=== PATIENT | female | born 2000 | race Two or more races ===

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

== ENCOUNTER 2024-08-18 16:32 | Observation (INO) | payer MEDICAID ==
[~2024-08-18] VITALS: Ht 162.6 cm; Wt 65.8 kg
--- NOTE | 2024-08-18 22:06 | DVHDS2 ---
Physician Discharge Progress N Final Diagnosis: well being established Operations or Procedures: Operations or Procedures S: 24yo IUP@27.2wks presents to OB triage with C/O uterine cramping in the morning, denies any currently. Denies UCs/LOF/VB/EDUARDO/vision changes/RUQ pain. Endorses +FM. PNC: initially with Dr. Romo but now with Dr. Katz at [facility]. O: VSS PO hydration NST reactive TOCO: no UCs noted A: 24yo IUP@27.2wks wellbeing established P: D/C home Drink 2-3L of water a day kick counts and Preeclampsia warning signs reviewed. PTL precautions given and when to return to the hospital. Dr. Katz consulted, agrees with POC. Condition on Discharge: Stable Disposition: Home Discharge Instructions: Diet: Regular Activity: No Restrictions, As Tolerated Medications: see med list Follow Up Care: Specialist: f/i with Dr. Katz at [facility] as scheduled for care Discharge Statement: "Patient was advised to return to the ER or call 911 if any headaches, dizziness, shortness of breath, chest pain, abdominal pain, bleeding, fevers, or worsening of medical condition. Patient was counseled about treatment plan, medications, possible side effects, patientverbalized understanding. All questions were answered to the best of my ability. This discharge took greater then 30 minutes in planning, reviewing docu mentation, counseling the patient, and discussing with other team members." Visit Coding OBGYN Date of Service: Aug 18, 2024 Billing Provider: CHEYENNE CREWS CNM STEAM TRAP WORKER Common Visit Codes: [id number] OBS CARE (LOW) CHEYENNE CREWS CNM Aug 18, 2024 22:06
== END 2024-08-18 18:23 | disposition home or self-care (01) ==
LOC: LDRP 16:32
PROVIDERS: ADMIT Obstetrics & Gynecology; ATTEND Obstetrics & Gynecology
DX: O62.9 Abnormality of forces of labor, unspecified (principal); Z3A.27 27 weeks gestation of pregnancy; Z79.899 Other long term (current) drug therapy
CPT/HCPCS: 59025; 81002; 94760; G0378

== ENCOUNTER 2024-11-09 02:36 | Inpatient (IN) | payer MEDICAID ==
[~2024-11-09] VITALS: Ht 162.6 cm; Wt 74.8 kg
[2024-11-09] MEDS ORDERED: NALBUPHINE HCL 10 MG/1ml INJECTION IV PRN (03:45)
[2024-11-09 04:11] LABS: Urine Bacteria None Seen /hpf (None Seen)
[2024-11-09] MEDS ORDERED: LACT. RINGERS/OXYTOCIN 20UNITS 1,000 ML IV SCH (04:15)
[2024-11-09 04:20] LABS: Basophils # (auto) 0.1 10 ^3/uL (0-0.2); Basophils % (auto) 1.3 % (0.0-2.0); Eosinophils # (auto) 0.1 10 ^3/uL (0-0.8); Hematocrit 38.5 % (36.0-46.0); Lymphocytes # (auto) 2.5 10 ^3/uL (0.4-5.4); Lymphocytes % (auto) 29.8 % (10.0-50.0); Mean Corpuscular Hemoglobin 30.4 pg (28.0-32.0); Mean Corpuscular Hgb Conc. 33.8 g/dL (32.0-36.0); Mean Corpuscular Volume 89.8 fL (80.0-100.0); Monocytes # (auto) 0.6 10 ^3/uL (0-1.3); Monocytes % (auto) 7.1 % (0.0-12.0); Neutrophils # (auto) 5.2 10 ^3/uL (1.6-8.6); Neutrophils % (auto) 60.8 % (37.0-80.0); Nucleated Red Blood Cells % 0.1 %; Platelet Count (auto) 190 10^3/uL (140-450); Red Blood Cells 4.28 10^6/uL (4.0-5.20); Red Cell Distribution Width 13.8 % (11.8-14.3); White Blood Cell 8.6 10^3/uL (4.4-10.8)
[2024-11-09 04:40] LABS: INR 0.91 (0.9-1.15); Partial Thromboplastin Time 29.7 SEC (24.5-34.5); Prothrombin Time 9.7 sec (9.3-11.8)
[2024-11-09 04:41] LABS: Urine Blood TRACE /uL (Negative); Urine Clarity Clear (Clear); Urine Color Light-Yellow (Yellow); Urine Mucus FEW (None Seen); Urine Protein, UAD Negative (Negative); Urine Specific Gravity 1.014 (1.001-1.035); Urine Squamous Epithelial Cell FEW /hpf (<5); Urine Urobilinogen Normal (Negative); Urine WBC 4 /HPF (0-5); Urine pH 6.5 (5.0-9.0)
[2024-11-09 04:57] LABS: Amphetamine Screen, Urine Neg (NEGATIVE); Barbiturate Scree,Urine Neg (NEGATIVE); Benzodiazephine Screen, Urine Neg (NEGATIVE); Cocaine Screen, Urine Neg (NEGATIVE); Opiate Scree,Urine Neg (NEGATIVE); Phencyclidine Screen, Urine Neg (NEGATIVE)
[2024-11-09 04:59] LABS: Alanine Aminotransferase 11 U/L (7-40); Albumin 4.1 g/dL (3.2-4.8); Anion Gap 10 (5-15); Aspartate Aminotransferase 20 U/L (13-40); BUN/Creatinine Ratio 14.5 (10.0-20.0); Calcium 9.7 mg/dL (8.7-10.4); Chloride 105 mmol/L (98-107); Glucose 86 mg/dL (74-106)
[2024-11-09 05:00] LABS: Bilirubin, Total 0.6 mg/dL (0.2-1.0)
[2024-11-09 05:10] LABS: Alkaline Phosphatase 193 U/L (46-116); Blood Urea Nitrogen 9 mg/dL (9-23); Carbon Dioxide 20 mmol/L (20-31); Sodium 135 mmol/L (136-145)
[2024-11-09] MEDS: LACTATED RINGER'S 1,000 ML IV SCH (05:34)
[2024-11-09 05:35] LABS: Cannabinoid Screen, Urine Neg (NEGATIVE)
[2024-11-09] MEDS: PHISODERM TOP SOLN 240ML BTL TOP PRN (05:35)
[2024-11-09] MEDS: WITCH HAZEL-GLYCERIN PAD TOP PRN (05:35)
[2024-11-09] MEDS: DERMOPLAST 60ML BOTTLE TOP PRN (05:36)
[2024-11-09] MEDS: KETOROLAC TROMETH 30 MG/ML 1ML VIAL IV ONE (08:21)
--- NOTE | 2024-11-09 08:22 | LDN2 ---
Labor and Delivery Note Date 11/09/24 Age 24 3 Para 3 now AB 0 EDC 11/14/24 EGA 39.2wks Diagnosis active labor then Vaginal Delivery: VTX Vacuum Assisted: No Placenta: Spontaneous Sex: Male Weight pending Apgars 9/9 Nuchal Cord Transected: No Amniotic Fluid: Clear Anesthesia local Episiotomy: No Extension: No Repaired with first degree perineal repaired with 3-0 vicryl EBL QBL 300ml Labs Blood Bank 11/09/24 04:02: Blood Type O POSITIVE Complications none Conditions stable Tool Procurement Coordinator Barbie Comments/Significant Med Nathalia SROM clear fluid while pushing At 0800 this 24yo now delivered a viable Male infant by w/ APGARS 9/9. SAVANAH presentation. Infant placed skin to skin on pts chest. Cord clamped and cut after pulsation ceased. Cord blood sent. Intact 3-vessel cord placenta delivered spontaneously, Dhillon. Pitocin IV bolus started. Pt requests to take home placenta, release form signed. Patient had local anesthesia. Cervix/vagina inspected (intact) and first degree perineal laceration present which was repaired with 3-0 vicryl suture. Fundus at U, firm, midline, and light lochia. QBL 300ml. VSS. Count correct x2. Patient to care and baby to couplet care, both stable. Visit Coding OBGYN Date of Service: Nov 10, 2024 Billing Provider: CHEYENNE CREWS CNM FOREIGN LANGUAGE INTERPRETER Common Visit Codes: PROCEDURE ONLY FOREIGN LANGUAGE INTERPRETER Procedure Codes: [id number] DEL INCLUDING CHEYENNE CREWS CNM Nov 09, 2024 08:22
--- NOTE | 2024-11-09 08:25 | DVHHP2 ---
OB CC & HPI Date Date of Admission: Nov 09, 2024 Patient Identification: : 3 Para: 2 EDC: November 14, 2024 EGA: 39.2wks Chief Complaints: Reason for admission: active labor History of Present Complaints 24yo IUP@39.2wks presents in active labor. Pt reports UCs Q3 min that started last night. Denies LOF/VB/EDUARDO/vision changes/RUQ pain. Endorses +FM. PNC: Routine PNC with Dr. Katz at [facility], PNC uncomplicated. GTT wnl, dating based on LMP c/w 7wk sono, GBS negative. OB hx: x2, uncomplicated Past Medical History Cardiac: No pertinent Hx Pulmonary: No pertinent Hx Central Nervous System: No pertinent Hx GI: No pertinent Hx Hemotology/Oncology: No pertinent Hx Hepatobiliary: No pertinent Hx Psychiatric: No pertinent Hx Musculoskeletal: No pertinent Hx Rheumotologic: No pertinent Hx Infectious Disease: No peritnent Hx ENT: No pertinent Hx Renal/: No pertinent Hx Endocrine: No pertinent Hx Dermatology: No pertinent Hx Past Surgical History: No pertinent Hx OB History OB History Care: Good Care Ultrasounds: Normal mid trimester US Obstetrical Complications: None Medical Complications: None Allergies: Coded Allergies: NO KNOWN ALLERGIES (Unverified , 08/11/17) Allergies NKDA Home Meds Active Scripts Docusate Sodium (Colace) 100 Mg Cap, 1 CAP PO BID PRN, #60 CAP 2 Refills Prov:KALAYDJIANAZADUHI CNM 11/10/24 Vit W/ Ferrous Fumara ( One Daily) Daily Tab, 1 TAB PO DAILY, #90 TAB 3 Refills Prov:KALAYDJIAN,AZADUHI CNM 11/10/24 Ibuprofen Micronized (MOTRIN TABLET) 600 Mg Tb, 600 MG PO Q6HP PRN for 20 Days, #80 TAB Prov:KALAYDJIANAZADUHI CNM 11/10/24 Current Medications Current Medications Medications (Trade) Dose Ordered Sig/Iris Route PRN Reason Start Time Stop Time Status Last Admin Lactated Ringer's 1,000 ml @ 125 mls/hr Q8H IV 11/09/24 03:45 11/09/24 05:34 Nalbuphine HCl (Nubain) 10 mg Q4HP PRN IV MODERATE PAIN (4-6 PAIN SCALE) 11/09/24 03:45 Witch Sommer (Tucks) 1 pad PRN PRN TOP PERINEAL AREA DISCOMFORT 11/09/24 03:45 11/09/24 05:35 Sodium Lauryl Sulfate (Phisoderm) 240 ml PRN PRN TOP PERINEAL AREA DISCOMFORT 11/09/24 03:45 11/09/24 05:35 Benzocaine (Dermoplast) 1 applic PRN PRN TOP PERINEAL AREA DISCOMFORT 11/09/24 03:45 11/09/24 05:36 Lidocaine HCl (Xylocaine) 40 ml ONCE PRN IJ PERINEAL AREA DISCOMFORT 11/09/24 03:45 Oxytocin 1,000 ml @ 125 mls/hr Q8H IV 11/09/24 04:15 Family & Social History Family/Social History Past Family/Social History: denies Blood Type: O+ Rubella: immune RPR/VDRL: Negative GBS Status: Negative HBsAG: Negative Review of Systems Constitutional: No symptom reported Ears, Nose, & Throat: No symptom reported Eyes: No symptom reported Pulmonary/Respiratory: No symptom reported Cardiovascular: No symptom reported Gastrointestinal: No symptom reported Genitourinary: No symptom reported Musculoskeletal: No symptom reported Skin: No symptom reported Psychiatric: No symptom reported Endocrine: No symptom reported Hemotologic/Lymphatic: No symptom reported OB Admission Exam Physical Exam Vitals: VSS, see CPN HEENT: TMs Normal, Fontanelles Normal, Nasal Mucosa Normal, Eyes non-injected, Oropharynx Normal, PERRLA, Moist Membranes, EOMI Heart: Rhythm Normal Lungs: Clear Abdomen: Gravid Extremities: Normal Reflexes: Normal Pelvic Exam: SVE: 7/60/-2 at admission OB Plan Plan Admitting Diagnosis: 24yo IUP@39.2wks Active labor Category I EFM Intact Membranes GBS negative Plan: Expectant Management Other Plan: Admit to L&D Informed consent obtained Expectant management for now due to frequent UCs monitoring per order Routine labs ordered Pain mgmt PRN Frequent position changes in and out of bed encouraged Limit SVE unless necessary Intrauterine resuscitation PRN Anticipate CNM will consult with Dr. Katz PRN Visit Coding OBGYN Date of Service: Nov 10, 2024 Billing Provider: CHEYENNE CREWS CNM PASTORAL MINISTRIES PROFESSOR Common Visit Codes: [id number] INP/OBS CARE (MOD) PASTORAL MINISTRIES PROFESSOR Procedure Codes: [id number]- NON-STRESS TEST CHEYENNE CREWS CNM Nov 09, 2024 08:25
[2024-11-09] MEDS ORDERED: ACETAMINOPHEN 325 MG TAB PO PRN (08:30)
[2024-11-09] MEDS: LACT. RINGERS/OXYTOCIN 20UNITS 500 ML IV ONE ×2 (08:40→08:42)
[2024-11-09] MEDS ORDERED: PRENATAL VITAMIN TAB PO SCH (10:00)
[2024-11-09] MEDS: LIDOCAINE 2%HCL (LOCAL ANESTH.) INJ 20ML MDV IJ PRN (10:02)
[2024-11-09 11:00] VITALS: BP 103/53; PULSE 70; RESP 20; TEMP 97.7; O2SAT 96
[2024-11-09] MEDS ORDERED: IBUPROFEN 600 MG TAB PO PRN (13:00)
[2024-11-09 15:00] VITALS: BP 107/57; PULSE 65; RESP 14; TEMP 98.2; O2SAT 95
[2024-11-09 19:00] VITALS: BP 101/64; PULSE 80; RESP 16; TEMP 98.2; O2SAT 98
[2024-11-09 23:00] VITALS: BP 100/62; PULSE 70; RESP 15; TEMP 98.5; O2SAT 98
--- NOTE | 2024-11-10 00:26 | DVHPN2 ---
Progress Note Date Seen: Nov 10, 2024 Subjective S: bleeding is less, eating food without issues, denies lightheaded/dizziness, pain well controlled with oral medications, no concerns with urinating, passing flatus, no BM yet, ambulating well, well vital signs Vital Sign Date Time Temp Pulse Resp B/P (MAP) Pulse Ox O2 Delivery O2 Flow Rate FiO2 11/09/24 23:00 98.5 70 15 100/62 (75) 98 98.5 11/09/24 19:20 Room Air 11/09/24 10:43 0.0 Total Intake and Output 11/09/24 11/09/24 11/10/24 15:00 23:00 07:00 Output Total 900 ml 1050 ml Balance -900 ml -1050 ml medications Current Medications Medications Dose Ordered Sig/Iris Route Start Time Stop Time Status Last Admin Dose Admin Lactated Ringer's 1,000 ml @ 125 mls/hr Q8H IV 11/09/24 03:45 11/09/24 05:34 125 MLS/HR Esteban Novoa 1 pad PRN PRN TOP 11/09/24 03:45 11/09/24 05:35 1 PAD Sodium Lauryl Sulfate 240 ml PRN PRN TOP 11/09/24 03:45 11/09/24 05:35 240 ML Benzocaine 1 applic PRN PRN TOP 11/09/24 03:45 11/09/24 05:36 1 APPLIC Lidocaine HCl 40 ml ONCE PRN IJ 11/09/24 03:45 11/09/24 10:02 20 ML Oxytocin 1,000 ml @ 125 mls/hr Q8H IV 11/09/24 04:15 Ibuprofen 600 mg Q6HP PRN PO 11/09/24 13:00 Acetaminophen 650 mg Q6HPRN PRN PO 11/09/24 08:30 Prenat Multivit/ [place]/Iron/Folic Ac 1 DAILY PO 11/09/24 10:00 laboratory and microbiology Laboratory Tests 11/09/24 04:02 Test 11/09/24 04:02 Range/Units Serum Glucose 86 74-106 mg/dL Objective O: VSS Chest: heart sounds normal and lung sounds clear bilaterally Abd: soft, non-tender, fundus at U/firm/midline, active bowel sounds, no rebound or guarding Perineum: sutures intact, edges well approximated, no erythema/edema noted Ext: Non-tender, No edema, 2+ BLE DTRs Lochia: minimal See lab results Problems(with codes): (1) First degree perineal laceration during delivery (2) (normal spontaneous vaginal delivery) (3) Precipitous drop in hematocrit Assessment/Plan A: 24yo now PPD#1 s/p Rh+ Rubella Immune P: D/C home today Rx sent to pharmacy precautions and preeclampsia warning signs reviewed F/U with [facility] OB office in 2 weeks Plan discussed with: Patient Visit Coding OBGYN Date of Service: Nov 10, 2024 Billing Provider: CHEYENNE CREWS CNM TRANSPORTATION OPERATIONS MANAGER Common Visit Codes: [id number] INP/OBS CARE(MOD) CHEYENNE CREWS CNM Nov 10, 2024 00:26
--- NOTE | 2024-11-10 00:27 | DVHDS2 ---
Obstetrics Discharge Summary Obstetrics Discharge Summary Date of Admission: Nov 09, 2024 Date of Discharge: Nov 10, 2024 Reason For Admission: Onset of Labor Procedures: NST Intrapartum Procedures: Spontaneous vaginal deliv Procedures: Hct/date: (11/10/24), Hgb/date: (11/10/24) Operative Complicat: Laceration (first degree Perineal) Discharge Diagnosis: Term -Delivered Discharge Information: Activity (as tolerated, no heavy lifting and nothing in the vagina for 6 weeks), Diet (Routine), Medications (Rx sent), Instructions (Routine), Discharge to (Home), Accompanied by (partner/family), Discarge date (11/10/24) Visit Coding OBGYN Date of Service: Nov 10, 2024 Billing Provider: CHEYENNE CREWS CNM EXTRACORPOREAL CIRCULATION SPECIALIST Common Visit Codes: [id number]/OBS DISCH DAY <30MIN CHEYENNE CREWS CNM Nov 10, 2024 00:27
[2024-11-10] MEDS ORDERED: DOCU-94 PO (00:28)
[2024-11-10] MEDS ORDERED: PREN-96 PO (00:28)
[2024-11-10] MEDS ORDERED: IBU600T PO (00:28)
[2024-11-10 03:00] VITALS: BP 100/58; PULSE 71; RESP 15; TEMP 98.7; O2SAT 97
[2024-11-10 07:00] VITALS: BP 100/60; PULSE 63; RESP 16; TEMP 98.7; O2SAT 98
[2024-11-10 09:41] LABS: Basophils # (auto) 0 10 ^3/uL (0-0.2); Basophils % (auto) 0.4 % (0.0-2.0); Eosinophils # (auto) 0.1 10 ^3/uL (0-0.8); Eosinophils % (auto) 1.1 % (0.0-7.0); Hematocrit 34.9 % (36.0-46.0); Lymphocytes # (auto) 2.3 10 ^3/uL (0.4-5.4); Lymphocytes % (auto) 26.7 % (10.0-50.0); Mean Corpuscular Hgb Conc. 34.3 g/dL (32.0-36.0); Mean Corpuscular Volume 90.3 fL (80.0-100.0); Monocytes # (auto) 0.5 10 ^3/uL (0-1.3); Monocytes % (auto) 6.1 % (0.0-12.0); Neutrophils # (auto) 5.6 10 ^3/uL (1.6-8.6); Neutrophils % (auto) 65.7 % (37.0-80.0); Platelet Count (auto) 169 10^3/uL (140-450); Red Blood Cells 3.86 10^6/uL (4.0-5.20); Red Cell Distribution Width 13.6 % (11.8-14.3); White Blood Cell 8.6 10^3/uL (4.4-10.8)
== END 2024-11-10 12:05 | disposition home or self-care (01) | DRG 560 ==
LOC: LDRP 02:36 → UNDOADMOB 02:36 → LDRP 03:20 → INTOOBSV 03:20 → OBSVTOIN 03:20 → LDRP 11:18
PROVIDERS: ADMIT Obstetrics & Gynecology; ATTEND Obstetrics & Gynecology
PROC: 10E0XZZ Delivery of Products of Conception, External Approach (ICD-10-PCS; principal; 2024-11-09)
PROC: 0HQ9XZZ Repair Perineum Skin, External Approach (ICD-10-PCS; 2024-11-09)
DX: O80 Encounter for full-term uncomplicated delivery (principal); Z37.0 Single live birth; R71.0 Precipitous drop in hematocrit; O70.0 First degree perineal laceration during delivery; Z3A.39 39 weeks gestation of pregnancy
CPT/HCPCS: 36415; 59409; 80053; 80307; 81001; 81002; 85025; 85610; 85730; 86780; 86803; 86850; 86900; 86901; 94760; 94762; 96360; 96361; 96365; 96366; G0378; J1885; J2590